=== PATIENT | female | born 1950 | race Caucasian/White ===

== ENCOUNTER → 2016-04-17 17:27 | Outpatient (CLI) | payer BC ==
[~2016-04-17 17:27] MED LIST: ELIQUIS2.5 MG PO; LISINOPRIL-HCTZ1 TA2 PO; MULTIPLE VITAMI1 TA1 PO; NEXIUM40 MG PO; PERCOCET 10/3251 TA1 PO; PROAIR HFA8.5 GM INH; ZYRTEC10 MG PO
[2016-05-20 09:35] VITALS: BMI 44.8
== END | disposition home or self-care (01) ==
LOC: D.LABREF 17:27
DX: M17.11 Unilateral primary osteoarthritis, right knee (principal); Z11.8 Encounter for screening for other infectious and parasitic diseases

== ENCOUNTER → 2016-05-08 19:23 | Outpatient (CLI) | payer BC ==
[2016-05-20 09:35] VITALS: BMI 44.8
== END | disposition home or self-care (01) ==
LOC: D.MAMMO 13:00
DX: Z12.31 Encounter for screening mammogram for malignant neoplasm of breast (principal)

== ENCOUNTER 2016-05-16 09:30 | Inpatient (IN) | payer BC ==
[~2016-05-16] VITALS: Ht 147.3 cm; Wt 97.3 kg
[2016-05-16 09:21] LABS: BASOPHILS 0.3 % (0.0-2.0); EOSINOPHILS 1.5 % (0-7); HEMATOCRIT 43.8 % (36.0-48.0); HEMOGLOBIN 14.1 g/dL (12-16); IMMATURE GRANULOCYTES 0.2 % (0-5); LYMPHOCYTES 35.5 % (15-50); MCH 30.9 pg (26.0-34.0); MCHC 32.2 g/dL (31.0-37.0); MCV 96.1 fL (80.0-100.0); MEAN PLATELET VOLUME 11.9 fL (7.4-10.4); MONOCYTES 8.8 % (2-11); NEUTROPHILS 53.7 % (40-80); PLATELET COUNT 141 10x3/uL (130-400); RBC 4.56 10x6/uL (4.00-5.40); RDW 13.3 % (11.5-14.5)
[~2016-05-16 09:30] MED LIST changes: -ELIQUIS2.5 MG PO; -PERCOCET 10/3251 TA1 PO
[2016-05-16 09:40] LABS: APPEARANCE HAZY (CLEAR); BACTERIA MODERATE /hpf (NONE SEEN); BILIRUBIN NEGATIVE (NEGATIVE); CALC OSMOLALITY 284 mosm/kg (275-300); CALCIUM 9.2 mg/dL (8.5-10.1); CARBON DIOXIDE 29.1 mmol/L (21.0-32.0); CHLORIDE - SERUM 103 mmol/L (98-107); COLOR STRAW (YELLOW); CREATININE - SERUM 0.8 mg/dL (0.6-1.3); EPITHELIAL CELLS 0-5 /hpf (0-5); GLUCOSE 97 mg/dL (74-106); GLUCOSE NEGATIVE (NEGATIVE); KETONE NEGATIVE (NEGATIVE); LEUKOCYTE ESTERASE 1+ (NEGATIVE); NITRITE NEGATIVE (NEGATIVE); POTASSIUM - SERUM 3.8 mmol/L (3.5-5.1); PROTEIN NEGATIVE (NEGATIVE); RED CELLS - URINE OCC /hpf (0-5); SODIUM 142 mmol/L (136-145); SPECIFIC GRAVITY 1.005 (1.005-1.020); UREA NITROGEN 18 mg/dL (7-18); UROBILINOGEN NORMAL (NORMAL); WHITE CELLS - URINE 0-5 /hpf (0-5); eGFR NON AFRICAN AMERICAN 76 mL/min (90-120)
[2016-05-16 10:01] LABS: APTT 27.5 SECONDS (22.8-39.4)
[2016-05-16 10:02] LABS: INR 0.96 (0.85-1.17); PROTIME 12.7 SECONDS (11.6-15.0)
[2016-05-20 06:15] VITALS: BP 141/78; BMI 45.0
--- NOTE | 2016-05-20 08:09 | NUR ---
R-FOOT AND LEG WASHED WITH HIBICLENS AND ALCOHOL PRIOR TO CHLORPREP PER KRYSTYNA
[2016-05-20 09:35] VITALS: BP 128/63; Ht 147.3 cm; Wt 97.3 kg
--- NOTE | 2016-05-20 09:35 | NUR ---
RECEIVED TO ROOM 2208 FROM RECOVERY ROOM VIA BED. ICE TO RIGHT KNEE. SCDs ON BUT NOT PLUGGED IN SO THAT WAS DONE. O2 @ 2L PER NC. ORIENTED TO ROOM AND CALL LIGHT SYSTEM. PASSWORD OBTAINED. BED ALARM TURNED ON. CALL LIGHT IN REACH. WILL CONTINUE WITH PLAN OF CARE.
--- NOTE | 2016-05-20 11:33 | NUR ---
AM MEDS ADMINISTERED WITH NORCO PO. CALL LIGHT IN REACH.
--- NOTE | 2016-05-20 13:43 | NUR ---
NO NEEDS VOICED AT THIS TIME. CALL LIGHT IN REACH. AT BEDSIDE.
--- NOTE | 2016-05-20 14:50 | NUR ---
RESTING WITH EYES CLOSED. RESP EVEN AND UNLABORED. CALL LIGHT IN REACH.
--- NOTE | 2016-05-20 14:52 | OP ---
PATIENT NAME: ANA LAURA SOLARES MEDICAL RECORD: [id number] :[birth year] LOCATION:D.[facility] [id number] ADMISSION DATE:05/20/16 SURGEON: TITI UNDERWOOD MD DATE OF OPERATION: 05/20/2016 PREOPERATIVE DIAGNOSIS: Valgus degenerative arthritis of the right knee. POSTOPERATIVE DIAGNOSIS: Valgus degenerative arthritis of the right knee. PROCEDURE: Right total knee arthroplasty. SURGEON: Titi Underwood MD ANESTHESIA: General. INTRAOPERATIVE COMPLICATIONS: None. SUMMARY OF PATHOLOGIC FINDINGS: The patient had valgus arthritis of the right knee with complete obliteration of the lateral compartment. IMPLANTS USED: [place] triathlon total knee arthroplasty size 4 ____ polyethylene component and a size 4 tibial baseplate with a 29 x 8 patellar component. OPERATIVE SUMMARY IN DETAIL: After obtaining the appropriate preoperative orthopedic surgery consent as well as anesthetic consultation, evaluation and clearance, the patient was brought to the operating room and placed on the operating table in supine position. After general laryngeal mask was administered, tourniquet was placed about the proximal aspect of the right lower extremity. Right lower extremity was then prepped and draped in routine sterile fashion. The arm was elevated, exsanguinated and tourniquet was inflated to 350 mmHg. Routine midline incision was taken down for paramedian arthrotomy. Patella was everted, distal femur was exposed. Intramedullary guidance was used to make the distal femoral cut. Proximal tibial cut was made using intramedullary guidance as well. Gap air carrier maintenance inspector was utilized at this point both for extension and flexion. The chamfer cuts were made using a gap balancing system. Trials were put into place taken through range of motion after ____ and corresponding to the above-mentioned implants. Wound was copiously irrigated. Final components were cemented into place. All excess cement was removed. After the cement was allowed to harden, the knee was taken through a range of motion. Paramedian arthrotomy was closed with #2 Ethibond followed by #1 Vicryl, 2-0 Vicryl and skin ashly. Sterile dressings were applied. The patient was awakened, taken to recovery in stable condition. All final needle and sponge counts were correct. TRANSINT:[id number] Voice Confirmation ID: [id number] DOCUMENT ID: [id number] OPERATIVE REPORT [id number] ANA LAURA SOLARES MD, TITI NICOLE at 1452 CC: [id number] DICTATION DATE: 05/20/16 0852 PLANOGRAMMER: 05/20/16 1126 ADM IN [facility] [address] [id number]
--- NOTE | 2016-05-20 14:53 | NUR ---
* Is the patient Alert and Oriented? Yes 0 * How many steps to enter\exit or inside your home? 3 0 * PCP Dr. Londono 0 * Pharmacy [facility] 0 * Preadmission Environment Home with Family 0 * ADLs Independent 0 * Equipment Cane Rolling Walker 0 * List name and contact numbers for known caregivers / representatives who currently or will assist patient after discharge: Spouse - Onesimo [phone] 0 * Additional services required to return to the preadmission environment? Yes 0 * Can the patient safely return to the preadmission environment? Yes 0 * Has this patient been hospitalized within the prior 30 days at any hospital? No 05/20/2016 14:40 DCP: Discharge Planning Patient Name: ANA LAURA SOLARES Admission Status: Elective Accout number: [id number] Admission Date: 05-20-2016 : 1950 Admission Diagnosis: Attending: CARLOS Current LOS: 1 Anticipated DC Date: 05-20-2016 Planned Disposition: Outpatient PT\OT Primary Insurance: [employer] OUT OF STATE Discharge Planning Comments: CM met with patient to assess dc plans/needs. Patient states she lives at home with her , Onesimo. She reports she is independent with all ADL's & IADL's. She has a rolling walker & cane at home. She has chosen [facility] for outpatient physical therapy - she has had 3 therapy sessions prior to surgery - she has an appt. scheduled for , 05/23. [facility] prior to admission & will be delivered to the home after dc. Anticipate dc 05/22. CM will follow.
[2016-05-20 16:12] VITALS: BP 106/39
--- NOTE | 2016-05-20 16:46 | NUR ---
STATES NO PAIN AT THIS TIME. FAMILY IN ROOM. CALL LIGHT IN REACH.
--- NOTE | 2016-05-20 17:29 | NUR ---
VOMITED. ZOFRAN 4 MG SIVP. LINENS CHANGED. PLACED ON BEDPAN.
--- NOTE | 2016-05-20 19:03 | NUR ---
NO CHANGES IN INITIAL ASSESSMENT. SCDs TO BLE. CPM ON. CALL LIGHT IN REACH. WILL CONTINUE WITH PLAN OF CARE. BED ALARM ON.
--- NOTE | 2016-05-20 19:15 | NUR ---
RECIEVED SHIFT REPORT. PT IS LYING IN BED. ALERT AND ORIENTED AND ABLE TO VERBALIZE NEEDS. IV IS PATENT AND FLUIDS ARE RUNNING PER ORDER. CPM ON. SCD'S ON. O2 @ 2 PER NASAL CANNULA. DRESSING TO RIGHT KNEE C/D/I. PT DENIES ANY PAIN AT THIS TIME. NO NEEDS ARE VERBALIZED AT THIS TIME. VISITOR AT BEDSIDE. WILL CONTINUE TO MONITOR. SIDE RAILS ARE UP X 2. BED IS IN LOWEST POSITION. BED ALARM IS ON FOR SAFETY. CALL LIGHT IS WITHIN REACH.
--- NOTE | 2016-05-20 20:31 | NUR ---
SHIFT ASSESSMENT COMPLETED. NIGHT MEDS GIVEN WITH NO PROBLEMS. NO NEEDS ARE VOICED. WILL MONITOR. SIDE RAILS X 2. BED LOW. BED ALARM ON. CALL LIGHT IN REACH.
[2016-05-20 21:00] VITALS: BP 110/54
[2016-05-21 05:00] VITALS: BP 104/46
[2016-05-21 07:10] LABS: HEMATOCRIT 36.4 % (36.0-48.0); HEMOGLOBIN 11.5 g/dL (12-16); MCHC 31.6 g/dL (31.0-37.0); MEAN PLATELET VOLUME 12.4 fL (7.4-10.4); RBC 3.83 10x6/uL (4.00-5.40); RDW 13.1 % (11.5-14.5); WBC 9.6 10x3/uL (4.8-10.8)
--- NOTE | 2016-05-21 07:15 | NUR ---
REPORT RECEIVED FROM GM MOBILE NURSE. CALL LIGHT IN REACH.
[2016-05-21 07:28] LABS: ANION GAP 7.8 mmol/L (8-16); BILIRUBIN - TOTAL 0.28 mg/dL (0.2-1.3); CALCIUM 8.7 mg/dL (8.5-10.1); CARBON DIOXIDE 31.9 mmol/L (21.0-32.0); CREATININE - SERUM 1.1 mg/dL (0.6-1.3); POTASSIUM - SERUM 3.7 mmol/L (3.5-5.1); PROTEIN - SERUM 6.2 g/dL (6.4-8.2)
--- NOTE | 2016-05-21 08:48 | NUR ---
ASSESSMENT COMPLETED. PERCOCET PO WITH AM MEDS ADMINISTERED. SCDs TO BLE. BED ALARM ON. ICE PACK TO KNEE. HELD BP MEDS D/T LOW BP. IV SL'D. CALL LIGHT IN REACH. WILL CONTINUE WITH PLAN OF CARE.
[2016-05-21 09:47] VITALS: BP 68/43
--- NOTE | 2016-05-21 10:14 | NUR ---
BP 68/43. NS 1000 CC IV BOLUS ADMINISTERED PER MD ORDER. CALL LIGHT IN REACH.
--- NOTE | 2016-05-21 12:15 | NUR ---
NS BOLUS COMPLETED. NO NEEDS VOICED AT THIS TIME. CALL LIGHT IN REACH.
--- NOTE | 2016-05-21 13:52 | NUR ---
IV FLUSHED WITH NS. FAMILY IN ROOM. CALL LIGHT IN REACH.
--- NOTE | 2016-05-21 13:58 | NUR ---
QUIET IN ROOM AT PRESENT DENIES ANY NEEDS AT THIS TIME RESP EVEN AND UNLABORED AT PRESENT.
--- NOTE | 2016-05-21 14:20 | NUR ---
RESTING WITH EYES CLOSED. RESP EVEN AND UNLABORED. CALL LIGHT IN REACH. AT BEDSIDE.
[2016-05-21 14:31] VITALS: BP 125/49
[2016-05-21 15:57] VITALS: BP 110/47
--- NOTE | 2016-05-21 16:14 | NUR ---
PERCOCET PO PER STUDENT NURSE AND INSTRUCTOR.
--- NOTE | 2016-05-21 18:28 | NUR ---
NO CHANGES IN INITIAL ASSESSMENT. SCDs TO BLE. CALL LIGHT IN REACH. WILL BED ALARM ON. WILL CONTINUE WITH PLAN OF CARE.
[2016-05-21 21:00] VITALS: BP 134/66
[2016-05-22 01:00] VITALS: BP 144/67
--- NOTE | 2016-05-22 02:00 | NUR ---
PATIENT RESTING IN BED WITH EYES CLOSED. NO VISIBLE SIGNS OF DISTRESS. BED IN LOWEST POSITION AND CALL LIGHT WITHIN REACH.
[2016-05-22 05:00] VITALS: BP 140/66
[2016-05-22 05:23] LABS: HEMATOCRIT 32.6 % (36.0-48.0); HEMOGLOBIN 10.3 g/dL (12-16); MCHC 31.6 g/dL (31.0-37.0); MEAN PLATELET VOLUME 12.5 fL (7.4-10.4); RBC 3.43 10x6/uL (4.00-5.40); RDW 13.2 % (11.5-14.5); WBC 8.2 10x3/uL (4.8-10.8)
--- NOTE | 2016-05-22 07:30 | NUR ---
RECIEVED PT DURING WALKING ROUNDS. PT RESTING COMFORTABLY IN BED WITH COMPLAINTS OF PAIN OF A 6 ON A SCALE OF 1-10. NO PAIN MEDICATION GIVEN AT THIS TIME. CPM ON AND FUNCTIONING PROPERLY. ASSESSMENT DONE PER FLOWSHEET. BED IN LOW POSITION AND CALL LIGHT WITHIN REACH. WILL CONTINUE TO MONITOR.
--- NOTE | 2016-05-22 08:30 | NUR ---
CPM OFF AT THIS TIME. PT TOLERATED THERAPY WELL. PT ADJUSTED IN BED FOR COMFORT. BED IN LOW POSITION AND CALL LIGHT WITHIN REACH. BED ALARM ON AND FUNCTIONING PROPERLY. BED IN LOW POSITION. WILL CONTINUE TO MONITOR.
--- NOTE | 2016-05-22 09:48 | NUR ---
05/22/2016 9:45 DCP: Discharge Planning Patient Name: ANA LAURA SOLARES Encounter No: [id number] : 1950 Primary Insurance: [employer] OUT OF STATE Anticipated DC Date: 05-20-2016 Planned Disposition: Outpatient PT\OT External Planned Provider: [facility] DCP follow-up note: Patient wants to go home today. She has ambulated 100'. Physical Therapist has assessed patients walker & recommends it be replaced by a wheeled walker. Called Charlene with [facility] - she has order for walker & will deliver to hospital prior to dc. Patient and family in agreement with discharge plan. Case management will follow and assist as needed. Flores Gillespie
[2016-05-22 11:04] VITALS: BP 133/45
--- NOTE | 2016-05-22 11:10 | NUR ---
PROVIDED INCENTIVE SPIROMETER TEACHING AT THIS TIME. PT PREFORMED 5X PROPERLY. SITTING IN CHAIR WITH PAIN OF A 5 ON A SCALE OF 1-10. CALL LIGHT WITHIN REACH. WILL CONTINUE TO MONITOR.
[2016-05-22 12:05] VITALS: BP 143/58
[2016-05-22] MEDS ORDERED: ELIQUIS2.5 MG PO (12:29)
[2016-05-22] MEDS ORDERED: PERCOCET 10/3251 TA1 PO (12:29)
[2016-05-22 16:35] VITALS: BP 135/51
--- NOTE | 2016-05-22 16:45 | NUR ---
PT WITHOUT DISTRESS.GOING TO DC HOME TODAY.FAMILY AT SIDE.
--- NOTE | 2016-05-22 17:00 | NUR ---
IV REMOVED. PT GIVEN DISCHARGE INSTRUCTIONS. BED IN LOW POSITION AND CALL LIGHT WITHIN REACH. WILL CONTINUE TO MONITOR.
== END 2016-05-22 18:04 | disposition home or self-care (01) | DRG 470 ==
LOC: D.MS 05-20 05:54 → D.SDCHOLD 05-20 05:54 → D.MS 05-20 09:36
PROVIDERS: Family Medicine; ADMIT Orthopaedic Surgery
PROC: 0SRC0J9 Replacement of Right Knee Joint with Synthetic Substitute, Cemented, Open Approach (ICD-10-PCS; principal; 2016-05-20 07:30)
DX: M17.11 Unilateral primary osteoarthritis, right knee (principal); I10 Essential (primary) hypertension; J44.9 Chronic obstructive pulmonary disease, unspecified; J45.909 Unspecified asthma, uncomplicated; I95.81 Postprocedural hypotension

== ENCOUNTER 2017-04-02 10:27 | Outpatient (CLI) | payer MEDICARE, OTHER ==
[2016-05-20 09:35] VITALS: BMI 44.8
--- NOTE | ~2017-04-02 | HEMODYNAMI ---
PATIENT:ANA LAURA SOLARES MEDICAL RECORD: [id number] : 52 LOCATION:[facility] ADMISSION DATE: 04/02/17 Generatedon:04/02/201715:44 Patient name: ANA LAURA SOLARES Patient #: [id number] SSN: : 1950 Date of study: 04/02/2017 Page: Of Hemodynamic Procedure Report Patient Data Patient Demographics Procedure consent was obtained First Name: ANA LAURA Gender: Female Last Name: BECK : 1950 Patient #: [id number] Age: 66 year(s) Race: Additional ID: [id number] Contact details Address: [address] State: [place] City: [place] Zip code: [address] Admission Admission Data Admission Date: 04/02/2017 Admission Time: 10:27 Lab Results Lab Result Date: 04/02/2017 Lab Result Time: 0:00 Biochemistry Name Units Result Min Max BUN mg/dl 18 --(---*)-- 7 18 Creatinine mg/dl 1.1 --(--*-)-- 0.6 1.3 CBC Name Units Result Min Max Hemoglobin g/dl 14.4 --(*---)-- 13.5 17.5 Procedure Procedure Types Cath Procedure Diagnostic Procedure [facility] w/Coronaries Miscellaneous Procedures Moderate Sedation up to 15 minutes Procedure Description Procedure Date Procedure Date: 04/02/2017 Procedure Start Time: 15:32 Procedure End Time: 15:43 Procedure Staff Name Function Jermain Betts MD Performing Physician Batsheva Shannon RT Monitor Raymond Doty RT Scrub Louis Hill RN Nurse Jennifer Spencer RT Monitor Procedure Data Cath Procedure Fluoroscopy Diagnostic fluoroscopy Total fluoroscopy Time: 0.8 time: 0.8 min min Diagnostic fluoroscopy Total fluoroscopy dose: 186 dose: 186 mGy mGy Contrast Material Contrast Material Type Amount (ml) Isovue 300 33 Entry Location Entry Primary Successful Side Size Upsize Upsize Entry Closure Hughes ccessful Closure Location (Fr) 1 (Fr) 2 (Fr) Remarks Device Remarks Radial Right 6 Fr Mechanical artery Short Compression Estimated blood loss: 5 ml Diagnostic catheters Device Type Used For End Catheter Placement DIAGNOSTIC Junction 110cm 5 Procedure Fr catheter ([id number]) Procedure Complications No complications Procedure Medications Medication Administration Route Dosage 0.9% NaCl I.V. 100 ml/hr Oxygen NC 2 l/min Heparin Flush Bag added to field 2 bags (1000units/500ml NS) Lidocaine 2% added to field 20 Radial Cocktail added to field 1 syringe (Verapomil 2mg/Nitro 400mcg/Heparin 1500units) Benadryl I.V. 50 mg Versed I.V. 1 mg Fentanyl I.V. 50 mcg Versed I.V. 1 mg Fentanyl I.V. 50 mcg Radial Cocktail I.A. 1 syringe (Verapomil 2mg/Nitro 400mcg/Heparin 1500units) Hemodynamics Rest HGB: 14.4 (g/dl) Heart Rate: 88 (bpm) Snapshots Pre Cath Intra NCS Post Cath Vital Signs Time Heart Resp SPO2 etCO2 NIBP (mmHg) Rhythm Pain Sedation Rate (ipm) (%) (mmHg) Status Level (bpm) 15:27:44 97 14 89 38.9 153/75(110) NSR 0 (11) 10(A) , No pain 15:32:37 92 16 98 37.4 157/68(110) NSR 0 (11) 10(A) , No pain 15:37:30 96 16 98 37.4 140/67(93) NSR 0 (11) 9(A) , No pain 15:42:21 100 16 96 33.6 136/70(93) NSR 0 (11) 10(A) , No pain Medications Time Medication Route Dose Verified Delivered Reason Notes Ef fectiveness by by 15:27:36 0.9% NaCl I.V. 100 Louis Louis Per ml/hr Liz Hill physician RN RN 15:27:48 Oxygen NC 2 l/min Louis Louis Per Liz Hill physician RN RN 15:28:00 Heparin Flush added 2 bags Louis Louis used for Bag to Liz Hill procedure (1000units/500ml field RN RN NS) 15:28:10 Lidocaine 2% added 20ml Louis Louis for local to vial Lorigan Lorigan anesthetic field RN RN 15:28:21 Radial Cocktail added 1 Louis Louis used for (Verapomil to syringe Lorigan Lorigan procedure 2mg/Nitro field RN RN 400mcg/Heparin 1500units) 15:28:41 Benadryl I.V. 50 mg Louis Louis Per Lorigan Lorigan physician RN RN 15:28:52 Versed I.V. 1 mg Louis Louis for Lorigan Lorigan sedation RN RN 15:29:05 Fentanyl I.V. 50 mcg Louis Louis for Lorigan Lorigan sedation RN RN 15:33:20 Versed I.V. 1 mg Louis Louis for Lorigan Lorigan sedation RN RN 15:33:29 Fentanyl I.V. 50 mcg Louis Louis for Lorigan Lorigan sedation RN RN 15:38:09 Radial Cocktail I.A. 1 Louis Jermain used for (Verapomil syringe Lizyigan Alpesh CABRERA procedure 2mg/Nitro RN 400mcg/Heparin 1500units) Procedure Log Time Note 14:55:20 Raymond PETE(R) sent for patient. Start room use. 15::26 Informed consent obtained and on chart 15:02:21 Time tracking: Regular hours 15::26 Plan of Care:Hemodynamics will remain stable., Cardiac rhythm will remain stable., Comfort level will be maintained., Respiratory function will remain adequate., Patient/ family verbilizes understanding of procedure., Procedure tolerated without complication., Recovers from procedure without complications.. 15:19:14 Patient received from ED to CCL 1 Alert and oriented. Tansferred to table in Supine position. 15:19:15 Warm blankets applied, and amber hugger turned on for patient comfort. 15:19:16 Correct patient and procedure confirmed by team. 15:19:17 ECG and BP/O2 sat monitors applied to patient. 15:22:01 Vital chart was started 15:22:02 Baseline sample Acquired. 15:23:27 Baseline sample Acquired. 15:23:34 Full Disclosure recording started 15:23:42 H&P Date Dictated: 04/02/2017 Within 30 days and on chart., H&P Addendum completed by physician on day of procedure. (MUST COMPLETE FOR ALL OUTPATIENTS). 15:23:44 Pre-procedure instructions explained to patient. 15:23:45 Pre-op teaching completed and patient verbalized understanding. 15::47 Family in waiting room. 15::49 Patient NPO since Midnight. 15::57 Is the patient allergic to Iodine/contrast media? No. 15::58 Was the patient premedicated? No 15:24:00 Is patient on blood thinner?Yes 15:24:05 Patient diabetic? No. 15:24:33 Previous problem with sedation/anesthesia? No ? 15:24:39 Snore? Yes 15:24:40 Sleep apnea? No 15:24:42 Deviated septum? Yes 15:24:48 Opens mouth fully? Yes 15:24:49 Sticks out tongue? Yes 15:24:52 Airway obstruction? No ? 15:25:00 Dentures? Yes in tight 15:25:04 Pre procedure: right dorsailis pedis pulse 1+ Palpable, but thready & weak; easily obliterated 15:25:06 Pre procedure: left dorsailis pedis pulse 1+ Palpable, but thready & weak; easily obliterated 15:25:09 Patient pain scale 3/10 ?. 15:25:15 IV patent on arrival in left antecubital with 0.9% NaCl at [facility]. 15:25:20 Lab results completed and on chart. 15:25:25 Right Radial & Right Groin area was prepped with chlora-prep and draped in sterile fashion 15:25:26 Alarms reviewed by R. N. 15:25:27 Sharps counted by scrub and verified by R.N. 15::48 Physician arrived 15::49 --------ALL STOP TIME OUT------ 15:25:50 Final Timeout: patient, procedure, and site verified with staff and physician. All members of the team are in agreement. 15:26:26 Right Radial & Right Groin site verified by team. 15::29 Physical assessment completed. ASA score P 2 - A patient with mild systemic disease as per Jermain Betts MD. ::33 Sedation plan: IV Moderate Sedation Medication:Versed, Fentanyl 15:27:36 0.9% NaCl 100 ml/hr I.V. was administered by Louis Hill RN; Per physician; :45 Lab Result : Hemoglobin 14.4 g/dl 15::45 Lab Result : Creatinine 1.1 mg/dl 15::45 Lab Result : BUN 18 mg/dl 15::48 Oxygen 2 l/min NC was administered by Louis Hill RN; Per physician; 15:27:59 Use device set Radial Dx or PCI 15:28:00 Heparin Flush Bag (1000units/500ml NS) 2 bags added to field was administered by Louis Hill RN; used for procedure; 15:28:00 ACIST Syringe (21007) opened to sterile field. 15:28:01 Medline Cath Pack ([id number]) opened to sterile field. 15:28:01 Bag Decanter (2002S) opened to sterile field. 15:28:02 SHEATH 6FR Slender ([id number]) opened to sterile field. 15:28:02 DIAGNOSTIC WIRE .035 260cm J wire (080876) opened to sterile field. 15:28:03 ACIST Hand Control (68593) opened to sterile field. 15:28:03 ACIST Manifold (44119) opened to sterile field. 15:28:06 MBrace Wrist Support ([id number]) opened to sterile field. 15:28:10 Lidocaine 2% 20ml vial added to field was administered by Louis Hill RN; for local anesthetic; 15::21 Radial Cocktail (Verapomil 2mg/Nitro 400mcg/Heparin 1500units) 1 syringe added to field was administered by Louis Hill RN; used for procedure; 15::41 Benadryl 50 mg I.V. was administered by Louis Hill RN; Per physician; 15::52 Versed 1 mg I.V. was administered by Louis Hill RN; for sedation; 15:29:05 Fentanyl 50 mcg I.V. was administered by Louis Hill RN; for sedation; 15::57 Procedure started. 15:32:33 Local anesthetic to right radial artery with Lidocaine 2% by Jermain Betts MD.INITIAL ACCESS ONLY 15::57 Zero performed for pressure channel P1 15:33:05 Zero performed for pressure channel P1 15:33:13 Zero performed for pressure channel P1 15:33:20 Versed 1 mg I.V. was administered by Louis Hill RN; for sedation; 15:33:29 Fentanyl 50 mcg I.V. was administered by Louis Hill RN; for sedation; 15:36:13 A 6 Fr Short sheath was inserted into the Right Radial artery 15:37:08 A DIAGNOSTIC Junction 110cm 5 Fr catheter ([id number]) was advanced over the wire and used for Procedure. 15:38:09 Radial Cocktail (Verapomil 2mg/Nitro 400mcg/Heparin 1500units) 1 syringe I.A. was administered by Jermain Betts MD; used for procedure; 15:38:20 LV gram done using BRONSON 15:38:25 Injector settings: Ml/sec: 10, Volume: 20, 15:38:36 EF : 60 % 15:38:47 LCA angiography performed. 15:39:26 RCA angiography performed. 15:39:36 Catheter removed. 15:39:41 TR BAND Standard ([id number]) opened to sterile field. 15:40:11 Sheath removed intact; hemostasis achieved with Mechanical Compression to the Right Radial artery. 15:40:38 Procedure ended.(Physican Out) 15:40:45 Fluoroscopy time 00.80 minutes. 15:40:49 Fluoroscopy dose: 186 mGy 15:40:49 Flurop Dose total: 186 15:40:52 Contrast amount:Isovue 300 33ml. 15:40:56 TR band inflated with 12cc of air. 15:41:30 Post-procedure physical assessment completed. ASA score P 2 - A patient with mild systemic disease as per Jermain Betts MD. 15:41:35 Post procedure rhythm: unchanged. 15:41:37 Estimated blood loss: 5 ml 15:41:39 Post procedure instruction explained to patient.Patient verbalizes understanding. 15:41:39 Patient needs reinforcement of post procedure teaching. 15:41:46 Procedure type changed to Cath procedure, Diagnostic procedure, LHC, LHC w/Coronaries, Miscellaneous Procedures, Moderate Sedation up to 15 minutes 15:42:31 Procedure and supply charges have been captured, reviewed, submitted and are correct. 15:42:33 Procedure Complication : No complications 15:43:40 Vital chart was stopped 15:43:42 See physician's report for complete and final results. 15:43:44 Report given to Pre/Post Procedure Room. 15:43:49 Patient transfered to Pre/Post Procedure Room with Bed. 15:43:51 Procedure ended. 15:43:51 Full Disclosure recording stopped 15:43:57 End room use (Document Last) Device Usage Item Name Manufacture Quantity Catalog Hospital Part Current Minima l Lot# / Number Charge Number Stock Stock Serial# Code ACIST Acist 1 97837 013739 971944 413066 20 Syringe Medical (35749) Systems Inc Medline Cath Cardinal 1 [id number] 214203 10101 099834 5 Pack Health ([id number]) Bag Decanter Microtek 1 2001S 523012 25735 170199 5 (2001S) Medical Inc. SHEATH 6FR Terumo 1 [id number] 223550 296091 921665 40 Slender ([id number]) DIAGNOSTIC St Don 1 083134 418781 207472 541007 30 WIRE .035 260cm J wire (884791) ACIST Hand Acist 1 33227 216947 880116 290328 5 Control Medical (88549) Systems Inc ACIST Acist 1 88061 567203 271049 591786 5 Manifold Medical (22373) Systems Inc MBrace Wrist Advanced 1 140-0250-00 418284 15799 303526 5 Support Vascular ([id number]) Dynamics DIAGNOSTIC Terumo 1 40-8053 600939 788466 324965 5 Junction 110cm 5 Fr catheter (738594) TR BAND Terumo 1 [id number] 050716 445096 621354 40 Standard ([id number]) Signature Audit [place] Stage Time Signature Unsigned Intra-Procedure 04/02/2017 Jennifer Spencer 3:44:20 PM RT(R) Signatures Monitor : Batsheva Shannon RT Signature : Date : Time : Monitor : Jennifer Spencer Signature : RT Date : Time : [facility] [address] [place] [address]
--- NOTE | ~2017-04-02 | CN ---
PATIENT NAME:ANA LAURA SOLARES MEDICAL RECORD: [id number] : 52 LOCATION:D.CAT ADMIT DATE: ACCOUNT: [id number] CONSULTING PHYSICIAN: JAYESH WILLAMS MD REFERRING PHYSICIAN: DANIELLE HCA MD DATE OF CONSULTATION: 04/02/2017 DIAGNOSES: 1. Chest pain compatible with angina. 2. Obesity. 3. Asthma. 4. Hypertension. 5. Abnormal ECG. HISTORY OF PRESENT ILLNESS: Mrs. Solares presents with anginal symptomatology. We saw her in the office, she was set for a stress test in the office as well as an echocardiogram. Her chest pain has continued to worsen. REVIEW OF SYSTEMS: The patient reports easy bruising but reports no swollen glands. The patient reports no fever, no night sweats, no significant weight gain, no significant weight loss. No significant exercise tolerance. The patient reports no dry eyes, no irritation, no vision change. Patient reports no difficulty hearing and no ear pain. Patient reports no frequent nose bleeds or nose and sinus problems. Patient reports on arm pain on exertion. No shortness of breath while lying down. No history of heart murmur. Patient reports no cough, no wheezing or coughing up blood. Patient reports no abdominal pain, no vomiting. Normal appetite. No diarrhea and not vomiting blood. No nausea and no constipation. Patient reports no incontinence. No difficulty urinating. No hematuria. No increased frequency. Patient reports no muscle aches. No weakness, no arthralgias, no back pain. No swelling of the extremities. Patient reports no abnormal mole, no jaundice, no rashes. Reports no loss of consciousness. No weakness and no numbness. No seizures, dizziness, or headaches. The patient reports no depression, no sleep disturbance, feeling safe in a relationship and no alcohol abuse. Patient reports on fatigue. Reports no runny nose or sinus pressure. No itching, no hives, and no frequent sneezing. PHYSICAL EXAMINATION: GENERAL APPEARANCE: Well-nourished, well-developed, appears stated age. Level of distress, comfortable. PSYCHIATRIC: Mental status, alert, normal affect. Orientation, oriented to time, place and person. EYES: Lids and conjunctiva, noninjected. No discharge, no pallor. ENT: Lips, teeth, gums, normal dentition. Oropharynx, no cyanosis, no pallor. NECK: Carotid arteries, bilateral normal upstroke, no bruits, no thrills. JUGULAR VEINS: No jugular venous pressure or distention. CERVICAL LYMPH NODES: Nontender, nonenlarged. THYROID: Not enlarged. Nontender. No nodules. LUNGS: Respiratory effort, unlabored. CHEST: Normal curvature. No thoracic deformity. No chest wall tenderness. Percussion, resonant. Auscultation, clear. No wheezes, no rales, no rhonchi. CARDIOVASCULAR: Precordial exam, nondisplaced. No heaves or pericardial thrills. Rate and rhythm, regular. Heart sounds, normal S1, normal S2. No S3, no gallop, no rub. Systolic murmur, not heard. Diastolic murmur, not heard. EXTREMITIES: No cyanosis, no edema. Peripheral pulses, full and equal in all CONSULT REPORT [id number] ANA LAURA SOLARES extremities, except as noted. No bruits appreciated. ABDOMEN: Soft, nondistended. Normal aorta. No bruit. Nontender. No masses. Liver, nontender, no hepatomegaly. Spleen, nontender, no splenomegaly. MUSCULOSKELETAL: No joint tenderness. No joint swelling. No erythema. NEUROLOGICAL: Normal gait, normal strength, normal tone. SKIN: Warm and dry. OVERALL IMPRESSION: Chest pain followed by angina, most likely she does have hemodynamically significant coronary artery disease. We will proceed with coronary angiography. Further care depends upon findings of the angiography. TRANSINT:[id number] Voice Confirmation ID: [id number] DOCUMENT ID: [id number] JAYESH WILLAMS MD at 1025 CC: [id number] DICTATION DATE: 04/02/17 1228 SENIOR CLINICAL SAS PROGRAMMER: 04/02/17 1532 DEP CLI 04/02/17 [place] [id number] [place] [id number]
--- NOTE | ~2017-04-02 | OP ---
PATIENT NAME: ANA LAURA SOLARES MEDICAL RECORD: [id number] :52 LOCATION:D.CAT ADMISSION DATE: SURGEON: JAYESH WILLAMS MD DATE OF OPERATION: 04/02/2017 PROCEDURES: 1. Left heart catheterization. 2. Selective coronary angiography. 3. Left ventriculogram. INDICATION: Chest pain compatible with angina. PROCEDURE IN DETAIL: After informed consent was obtained and after a detailed explanation of the risks, benefits as well as alternative therapies, the patient elected to proceed with angiogram and heart catheterization. The right radial area was prepped and draped in normal sterile fashion. The right radial artery was cannulated via modified Seldinger technique with placement of 5-[place] sheath. All catheters exchanged through this sheath. FINDINGS: Left ventriculogram was performed in standard 30-degree BRONSON view, reveals good cardiac wall motion throughout all segments. Overall ejection fraction estimated at 60%. SELECTIVE CORONARY ANGIOGRAPHY: Left main, left anterior descending, left circumflex, right coronary artery are all smooth-walled vessels with no angiographic evidence of coronary artery disease. OVERALL IMPRESSION: 1. No angiographic evidence of coronary artery disease. 2. Normal left heart pressures. 3. Normal left ventricular systolic function. Chest pain is noncardiac in etiology. No further cardiac workup needs to be ascertained. TRANSINT:[id number] Voice Confirmation ID: [id number] DOCUMENT ID: [id number] JAYESH WILLAMS MD at 1025 CC: SUN ROE DO [id number] DICTATION DATE: 04/02/17 1543 LEATHER SORTER: 04/02/17 1904 DEP CLI 04/02/17 [place] [id number] [place] [id number]
[~2017-04-02 10:27] MED LIST changes: +ELIQUIS2.5 MG PO; +PERCOCET 10/3251 TA1 PO
[2017-04-02 11:02] LABS: BASOPHILS 0.4 % (0-2); EOSINOPHILS 1.3 % (0-7); HEMATOCRIT 43.5 % (36.0-48.0); HEMOGLOBIN 14.4 g/dL (12-16); IMMATURE GRANULOCYTES 0.2 % (0-5); LYMPHOCYTES 29.7 % (15-50); MCH 31.1 pg (26.0-34.0); MCHC 33.1 g/dL (31.0-37.0); MEAN PLATELET VOLUME 12.2 fL (7.4-10.4); NEUTROPHILS 59.4 % (40-80); PLATELET COUNT 144 10x3/uL (130-400); RBC 4.63 10x6/uL (4.00-5.40); RDW 12.6 % (11.5-14.5); WBC 5.2 10x3/uL (4.8-10.8)
[2017-04-02 11:16] LABS: ALBUMIN 3.7 g/dL (3.4-5.0); ALKALINE PHOSPHATASE 83 U/L (46-116); ALT (SGPT) 29 U/L (10-68); BILIRUBIN - TOTAL 0.43 mg/dL (0.2-1.3); CALC OSMOLALITY 284 mosm/kg (275-300); CARBON DIOXIDE 30.5 mmol/L (21.0-32.0); CHLORIDE - SERUM 105 mmol/L (98-107); CREATININE - SERUM 1.1 mg/dL (0.6-1.3); GLUCOSE 126 mg/dL (74-106); POTASSIUM - SERUM 4.8 mmol/L (3.5-5.1); PROTEIN - SERUM 7.7 g/dL (6.4-8.2); SODIUM 141 mmol/L (136-145); UREA NITROGEN 18 mg/dL (7-18); eGFR NON AFRICAN AMERICAN 53 mL/min (90-120)
[2017-04-02 11:24] LABS: CHOL - HDL RATIO 3.2 ratio (2.3-4.1); CHOLESTEROL, TOTAL 177 mg/dL (0-200); CKMB 0.7 U/L (0.0-3.6); CREATINE KINASE 133 UL (21-215); HDL CHOLESTEROL 56 mg/dL (32-96); LDL CHOLESTEROL 95 mg/dL (0-100); LDL-HDL RATIO 1.7 ratio (1.5-3.5); TRIGLYCERIDE 134 mg/dL (30-200)
[2017-04-02 11:26] LABS: TROPONIN-I < 0.017 ng/mL (0.000-0.060)
== END 2017-04-02 18:05 | disposition home or self-care (01) ==
LOC: D.CATH 10:27 → D.ER 10:27 → EDSTATUS 12:40 → D.CATH 18:05
PROVIDERS: Emergency Medicine
DX: R07.89 Other chest pain (principal); E66.9 Obesity, unspecified; J45.909 Unspecified asthma, uncomplicated; I10 Essential (primary) hypertension; R94.39 Abnormal result of other cardiovascular function study; Z01.812 Encounter for preprocedural laboratory examination

== ENCOUNTER → 2017-07-04 06:35 | Outpatient (CLI) | payer MEDICARE, OTHER ==
[2016-05-20 09:35] VITALS: BMI 44.8
== END | disposition home or self-care (01) ==
LOC: D.MAMMO 06-25 11:00
DX: Z12.31 Encounter for screening mammogram for malignant neoplasm of breast (principal)

== ENCOUNTER 2017-08-06 08:23 | Outpatient (CLI) | payer MEDICARE, OTHER ==
[2016-05-20 09:35] VITALS: BMI 44.8
== END 2017-08-06 08:24 | disposition home or self-care (01) ==
LOC: D.MAMMO 08:23
DX: R92.8 Other abnormal and inconclusive findings on diagnostic imaging of breast (principal)

== ENCOUNTER 2017-08-10 21:28 | Emergency (ER) | payer MEDICARE, OTHER ==
[2016-05-20 09:35] VITALS: BMI 44.8
== END 2017-08-10 22:26 | disposition home or self-care (01) ==
LOC: D.ER 21:28
DX: S90.562A Insect bite (nonvenomous), left ankle, initial encounter (principal); W57.XXXA Bitten or stung by nonvenomous insect and other nonvenomous arthropods, initial encounter; Y93.89 Activity, other specified; Y92.89 Other specified places as the place of occurrence of the external cause

== ENCOUNTER 2018-08-17 12:30 | Outpatient (CLI) | payer MEDICARE, OTHER ==
[2016-05-20 09:35] VITALS: BMI 44.8
== END 2018-08-17 13:00 | disposition home or self-care (01) ==
LOC: D.MAMMO 12:30
PROVIDERS: ATTEND Family Medicine
DX: Z12.31 Encounter for screening mammogram for malignant neoplasm of breast (principal)

== ENCOUNTER → 2018-09-28 15:23 | Outpatient (CLI) | payer MEDICARE, OTHER ==
[2016-05-20 09:35] VITALS: BMI 44.8
== END | disposition home or self-care (01) ==
LOC: D.RAD 15:23
PROVIDERS: ATTEND Family Medicine
DX: M25.561 Pain in right knee (principal)

== ENCOUNTER 2019-03-01 07:15 | Emergency (ER) | payer MEDICARE, OTHER ==
[~2019-03-01] VITALS: Ht 149.9 cm; Wt 86.4 kg
[2019-03-01 07:17] VITALS: Ht 149.9 cm; Wt 86.4 kg
[2019-03-01 08:03] LABS: BASOPHILS 0.1 % (0-2); EOSINOPHILS 0 % (0-7); HEMATOCRIT 47.1 % (36.0-48.0); HEMOGLOBIN 15.5 g/dL (12-16); IMMATURE GRANULOCYTES 0.2 % (0-5); LYMPHOCYTES 2.1 % (15-50); MCH 31.2 pg (26.0-34.0); MCHC 32.9 g/dL (31.0-37.0); MCV 94.8 fL (80.0-100.0); MEAN PLATELET VOLUME 12.3 fL (7.4-10.4); MONOCYTES 2.5 % (2-11); NEUTROPHILS 95.1 % (40-80); PLATELET COUNT 137 10x3/uL (130-400); RBC 4.97 10x6/uL (4.00-5.40); RDW 12.8 % (11.5-14.5); WBC 10.2 10x3/uL (4.8-10.8)
[2019-03-01 08:12] LABS: ANION GAP 14.1 mmol/L (8-16); CALCIUM 9.2 mg/dL (8.5-10.1); CARBON DIOXIDE 25.8 mmol/L (21.0-32.0); CREATININE - SERUM 1.2 mg/dL (0.6-1.3); POTASSIUM - SERUM 3.9 mmol/L (3.5-5.1)
[2019-03-01 08:18] LABS: ALBUMIN 3.7 g/dL (3.4-5.0); BILIRUBIN - TOTAL 0.43 mg/dL (0.2-1.3); PROTEIN - SERUM 7.3 g/dL (6.4-8.2)
[2019-03-01] MEDS ORDERED: ZOFRAN ODT4 MG/UDTAB PO (08:24)
[2019-03-01] MEDS ORDERED: LOMOTIL 2.5-0.1 EAC1 PO (08:24)
[2019-03-01 08:40] VITALS: BP 116/54
== END 2019-03-01 08:41 | disposition home or self-care (01) ==
LOC: D.ER 07:15
PROVIDERS: Family Medicine
DX: A08.4 Viral intestinal infection, unspecified (principal); I10 Essential (primary) hypertension; J44.9 Chronic obstructive pulmonary disease, unspecified; R19.7 Diarrhea, unspecified; R11.2 Nausea with vomiting, unspecified

== ENCOUNTER 2019-08-20 19:00 | Outpatient (CLI) | payer MEDICARE, OTHER ==
[2019-03-01 07:17] VITALS: BMI 38.4
[~2019-08-20 19:00] MED LIST changes: +LOMOTIL 2.5-0.1 EAC1 PO; +ZOFRAN ODT4 MG/UDTAB PO
== END 2019-08-20 23:59 | disposition home or self-care (01) ==
LOC: D.MAMMO 19:00
PROVIDERS: ATTEND Family Medicine
DX: Z12.31 Encounter for screening mammogram for malignant neoplasm of breast (principal)